=== PATIENT | female | born 1955 | race American Indian/Alaskan Native ===

== ENCOUNTER 2018-02-23 08:24 | Outpatient (CLI) | payer OTHER ==
--- NOTE | 2018-02-23 08:56 | XRay Report ---
BILATERAL KNEE RADIOGRAPHS INDICATION: Bilateral knee pain. COMPARISON: None similar at this institution. FINDINGS: Standing AP, lateral, oblique and sunrise views of both knees demonstrate intact articulation. Slight, age-appropriate degenerative spurring. Atherosclerotic vascular calcifications noted. RIGHT KNEE: Superior and inferior patellar enthesophytes. Minimal patellar superior and inferior articular spurring. Small suprapatellar effusion may be present. LEFT KNEE: Superior and inferior patellar enthesophytes. Approximately 1.2 cm upper to mid patellar articular surface osteochondral defect. CONCLUSION: Mild bilateral knee degenerative changes with approximately 1.2 cm left patellar articular surface irregularity/defect suspected, as described. Please correlate. Thank you for the opportunity to participate in this patient's care.
== END 2018-02-23 08:25 | disposition home or self-care (01) ==
LOC: SPVIMAG 08:24
PROVIDERS: ATTEND Orthopaedic Surgery
DX: M17.0 Bilateral primary osteoarthritis of knee (principal); I70.90 Unspecified atherosclerosis